=== PATIENT | female | born 1970 | race Caucasian/White ===

== ENCOUNTER 2016-09-04 14:39 | Emergency (ER) | payer BC, OTHER ==
[~2016-09-04] VITALS: Ht 165.1 cm; Wt 93.8 kg
[~2016-09-04 14:39] MED LIST: Colace PO; Ecotrin PO; Feosol PO; OxyCONTIN PO; PriLOSEC PO; SUDAFED PE PO; Senokot S,Pericolace PO; celeBREX PO; oxyCODONE PO
[2016-09-04 16:30] VITALS: BP 119/74
== END 2016-09-04 16:30 | disposition home or self-care (01) ==
LOC: EME 14:39
PROC: 3E0234Z Introduction of Serum, Toxoid and Vaccine into Muscle, Percutaneous Approach (ICD-10-PCS; principal; 2016-09-04)
DX: S80.872A Other superficial bite, left lower leg, initial encounter (principal); W55.01XA Bitten by cat, initial encounter; Y92.008 Other place in unspecified non-institutional (private) residence as the place of occurrence of the external cause; S80.812A Abrasion, left lower leg, initial encounter; W55.03XA Scratched by cat, initial encounter; Z23 Encounter for immunization; Z79.82 Long term (current) use of aspirin; F17.200 Nicotine dependence, unspecified, uncomplicated
CPT/HCPCS: 99281; 99284

== ENCOUNTER 2016-09-07 07:47 | Emergency (ER) | payer BC, OTHER ==
[~2016-09-07] VITALS: Ht 165.1 cm; Wt 93.0 kg
[2016-09-07 09:36] VITALS: BP 128/82
== END 2016-09-07 09:36 | disposition home or self-care (01) ==
LOC: EME 07:47
DX: Z29.14 Encounter for prophylactic rabies immune globulin (principal); S81.832D Puncture wound without foreign body, left lower leg, subsequent encounter; W55.01XD Bitten by cat, subsequent encounter
CPT/HCPCS: 99281; 99284